=== PATIENT | female | born 1985 | race Caucasian/White ===

== ENCOUNTER 2018-01-07 12:35 | Emergency (ER) | payer MEDICAID ==
[2018-01-07] MEDS ORDERED: NS 1,000 ML IV ONE (13:26)
--- NOTE | 2018-01-07 13:31 | EDPHY ---
H & P Stated Complaint: R ear pain, ST Time Seen by Provider: 01/07/18 13:16 HPI/ROS: CHIEF COMPLAINT: Sore throat, otalgia times 10 days HISTORY OF PRESENT ILLNESS: 32-year-old immunocompetent female via private vehicle complaining of bilateral otalgia, sore throat times 10 days. No fever no chills. No nausea or vomiting. No abdominal pain. No flank pain. No vomiting. No nuchal rigidity. No headache. No otorrhea. No hearing loss. No tinnitus. No dizziness. No foreign body insertion. No barotrauma. REVIEW OF SYSTEMS: 10 systems reviewed and negative with the exception of the elements mentioned in the history of present illness PAST MEDICAL & SURGICAL HISTORY: No pertinent medical or surgical history SOCIAL HISTORY:Nonsmoker PHYSICAL EXAM (Prior to examination, patient consented to physical exam, hands were washed and my usual and customary physical exam procedures followed) 1) GENERAL: Well-developed, well-nourished, alert and oriented. Appears to be in no acute distress. 2) HEAD: Normocephalic, atraumatic 3) HEENT: Pupils equal, round, reactive to light bilaterally. Sclera anicteric. Oropharynx: No trismus no drooling, bilateral, symmetrically enlarged, exudative tonsils. No hot potato voice. No pointing of the uvula Dry mucous membranes. Ears bilaterally with normal tympanic membranes. 4) NECK: Full range of motion, no meningeal signs. Positive adenopathy bilaterally. Submental and submandibular spaces are soft otherwise with no evidence of Kenji's angina. 5) LUNGS: Clear auscultation bilaterally, no wheezes, no rhonchi, no retractions. 6) HEART: Regular rate and rhythm, no murmur, no heave, no gallop. 7) ABDOMEN: No guarding, no rebound, no focal tenderness, negative McBurney's, negative Sanders's, negative Rovsing's, negative peritoneal sign, specifically no left upper quadrant pain no flank pain 8) MUSCULOSKELETAL: Moving all extremities, no focal areas of tenderness, no obvious trauma. No peripheral edema or discoloration. 9) BACK: No CVA tenderness, no midline vertebral tenderness, no fluctuance, no step-off, no obvious trauma, no visual or palpable abnormality. 10) SKIN: No rash, no petechiae. 11) Psychiatric: Patient is oriented X 3, there is no agitation. DIFFERENTIAL DIAGNOSIS: In no particular order, my differential diagnosis includes, but is not limited to, strep pharyngitis, viral pharyngitis, peritonsillar abscess, retropharyngeal abscess or phlegmon, mononucleosis, meningitis, Lemierre syndrome. - Personal History LMP (Females 10-55): Now Current Tetanus/Diphtheria Vaccine: Yes Current Tetanus Diphtheria and Acellular Pertussis (TDAP): Yes - Medical/Surgical History Hx Asthma: Yes Hx Chronic Respiratory Disease: No Hx Diabetes: No Hx Cardiac Disease: No Hx Renal Disease: No Hx Cirrhosis: No Hx Alcoholism: No Hx HIV/AIDS: No Hx Splenectomy or Spleen Trauma: No Other PMH: asthma, - Social History Smoking Status: Never smoked Constitutional: Initial Vital Signs Temperature (C) 37.1 C 01/07/18 12:41 Heart Rate 108 H 01/07/18 12:41 Respiratory Rate 16 01/07/18 12:41 Blood Pressure 144/107 H 01/07/18 12:41 O2 Sat (%) 97 01/07/18 12:41 O2 Delivery Mode Room Air Allergies/Adverse Reactions: Penicillins Allergy (Verified 01/07/18 12:40) Sulfa (Sulfonamide Antibiotics) Allergy (Verified 01/07/18 12:40) Home Medications: Medication Instructions Recorded Azithromycin [Zithromax] 500 mg PO DAILY #1 tablet 01/07/18 methylPREDNISolone [Medrol Dose 4 mg PO DAILY #1 ea 01/07/18 Arnoldo] Medical Decision Making ED Course/Re-evaluation: I saw this patient independently based on established practice protocols. Care of patient under supervision of secondary supervising physician Dr Estevez with whom I discussed case. Negative mono and strep testing. High clinical suspicion for strep pharyngitis. Recommend treatment with antibiotics. Given azithromycin prescription given her penicillin allergy history. Also given Medrol Dosepak. She notes no prior history of adverse reaction to steroids or history of chronic psychiatric condition. My usual and customary antibiotic and steroid precautions instructions provided. - Data Points Laboratory Results: 01/07/18 01/07/18 01/07/18 Unknown 13:35 13:00 Monoscreen NEGATIVE (NEGATIVE) Group A Strep Screen NEGATIVE (NEGATIVE) Group A Strep DNA Pending Medications Given: Discontinued Medications Sodium Chloride (Ns) 1,000 mls @ 0 mls/hr IV ONCE ONE PRN Reason: Wide Open Stop: 01/07/18 13:27 Last Admin: 01/07/18 13:31 Dose: 1,000 mls Departure - Departure Disposition: Home, Routine, Self-Care Clinical Impression: Strep pharyngitis Condition: Good Instructions: Strep Throat (DC) Additional Instructions: Return to the ER immediately if you cannot swallow, have drooling, fevers, neck stiffness, cannot open your jaw, or any other symptoms that concern you. Referrals: RALPH POLLARD [Other] - 2-3 days, call for appt. Ramses Manriquez MD [Medical Doctor] - 2-3 days, call for appt. Stand Alone Forms: Work Excuse Prescriptions: Azithromycin [Zithromax] 500 mg PO DAILY #1 tablet methylPREDNISolone [Medrol Dose Arnoldo] 4 mg PO DAILY #1 ea
[2018-01-07 15:03] VITALS: BP 147/104
[2018-01-08 12:25] LABS: GROUP A STREP DNA (THROAT) POSITIVE (NEGATIVE)
== END 2018-01-07 15:04 | disposition home or self-care (01) ==
DX: J02.0 Streptococcal pharyngitis (principal)

== ENCOUNTER 2018-01-11 15:39 | Emergency (ER) | payer MEDICAID ==
[2018-01-11 15:55] VITALS: BP 148/84
--- NOTE | 2018-01-11 16:41 | EDPHY ---
H & P Stated Complaint: seen for same 4 days ago, swelling in throat/intermittent fever Time Seen by Provider: 01/11/18 16:05 HPI/ROS: CHIEF COMPLAINT: Sore throat HISTORY OF PRESENT ILLNESS: 32-year-old female presents with sore throat. Onset of sore throat 10 days ago. The sore throat has been persistent and moderate. She was seen in this emergency department 5 days ago and prescribed Zithromax and prednisone, without relief. She presents today because of persistent fever and sore throat. REVIEW OF SYSTEMS: complete 10 point ROS reviewed and is negative except for the noted elements in the HPI - Medical/Surgical History Hx Asthma: Yes Hx Chronic Respiratory Disease: No Hx Diabetes: No Hx Cardiac Disease: No Hx Renal Disease: No Hx Cirrhosis: No Hx Alcoholism: No Hx HIV/AIDS: No Hx Splenectomy or Spleen Trauma: No Other PMH: asthma - Social History Smoking Status: Never smoked - Physical Exam Exam: General Appearance: Alert, pleasant Eyes: Pupils equal and round, no conjunctival pallor or injection ENT, Mouth: Mucous membranes moist, pharyngeal erythema, right tonsillar pillar greater than left, no fluctuance Neck: Shoddy anterior adenopathy Respiratory: Lungs are clear to auscultation Cardiovascular: Regular rate and rhythm Neurological: A&O, nonfocal, normal gait Skin: Warm and dry, no rash Extremities: Normal inspection Psychiatric: Mood and affect normal Constitutional: Initial Vital Signs Temperature (C) 36.7 C 01/11/18 15:51 Heart Rate 87 01/11/18 15:51 Respiratory Rate 18 01/11/18 15:51 Blood Pressure 148/84 H 01/11/18 15:51 O2 Sat (%) 95 01/11/18 15:51 O2 Delivery Mode Room Air Allergies/Adverse Reactions: Penicillins Allergy (Verified 01/11/18 15:56) Sulfa (Sulfonamide Antibiotics) Allergy (Verified 01/11/18 15:56) Home Medications: Medication Instructions Recorded Azithromycin [Zithromax] 500 mg PO DAILY #1 tablet 01/07/18 methylPREDNISolone [Medrol Dose 4 mg PO DAILY #1 ea 01/07/18 Arnoldo] Albuterol 01/11/18 Ondansetron Odt [Zofran Odt 4 mg 4 mg PO Q4 PRN #10 tab 01/11/18 (*)] Penicillin V Potassium 500 mg PO BID #20 tablet 01/11/18 Medical Decision Making ED Course/Re-evaluation: Strep culture reviewed, positive for strep. I will switch her antibiotic to penicillin. Penicillin is listed as an allergy for her, but penicillin only causes nausea. I will also prescribe Zofran as needed for nausea. Departure - Departure Disposition: Home, Routine, Self-Care Clinical Impression: Acute pharyngitis Qualifiers: Pharyngitis/tonsillitis etiology: streptococcus Qualified Code(s): J02.0 - Streptococcal pharyngitis Condition: Good Instructions: Strep Throat (ED) Referrals: RALPH POLLARD [Other] - As per Instructions Prescriptions: Ondansetron Odt [Zofran Odt 4 mg (*)] 4 mg PO Q4 PRN #10 tab PRN Reason: Nausea Penicillin V Potassium 500 mg PO BID #20 tablet
== END 2018-01-11 16:54 | disposition home or self-care (01) ==
DX: J02.0 Streptococcal pharyngitis (principal); Z88.2 Allergy status to sulfonamides; Z88.0 Allergy status to penicillin